=== PATIENT | female | born 1970 | race African-American/Black ===

== ENCOUNTER 2018-11-21 19:46 | Emergency (ER) | payer OTHER ==
[~2018-11-21] VITALS: Ht 165.1 cm; Wt 66.3 kg
[2018-11-21 20:15] VITALS: BP 111/78
--- NOTE | 2018-11-21 20:22 | NUR ---
PT AMBULATED BACK TO LOBBY WITH STEADY GAIT. AWAITING AVAILABLE BED.
--- NOTE | 2018-11-21 20:32 | NUR ---
PT BIB SELF FOR RUNNY NOSE, CONGESTION, AND SORETHROAT. PT STATES SHE HAS CLEAR MUCUS, NORMALLY TAKES OTC ALLERGY MEDS BUT THEY HAVE NOT BEEN WORKING FOR HER. RR EVEN AND UNLABORED, BL BS CLEAR. PT SITTING IN CHAIR, AWAKE AND CALM.
--- NOTE | 2018-11-21 21:11 | NUR ---
DISCHARGE PAPERS GIVEN TO PT. PT STATES RELIEF. VSS. RX OF PROMETHAZINE, LORATADINE AND FLONASE GIVEN. SIDE EFFECTS EXPLAINED. INSTRUCTED TO F/U WITH PCP AND WHEN TO RETURN TO ER. PT VERBALLIZED UNDERSTANDING OF DC INSTRUCTIONS. ALL QUESTIONS ANSWERED.
== END 2018-11-21 21:11 | disposition home or self-care (01) ==
LOC: MED 19:46
DX: J30.9 Allergic rhinitis, unspecified (principal)
CPT/HCPCS: 99283